=== PATIENT | male | born 1950 | race Caucasian/White ===

== ENCOUNTER 2020-03-15 06:29 | Inpatient (IN) | payer MEDICARE ==
[~2020-03-15] VITALS: Ht 177.8 cm; Wt 99.8 kg
[2020-03-15] VITALS (9 sets, daily range): BP systolic 104–141; BP diastolic 39–93
[~2020-03-15 06:29] MED LIST: LOSARTAN POTASS25 MG PO; MELOXICAM7.5 MG PO; SIMVASTATIN20 MG PO
[2020-03-16 00:08] VITALS: BP 148/82
[2020-03-16 04:28] VITALS: BP 140/83
[2020-03-16 05:09] LABS: HEMATOCRIT 38.1 % (39.0-50.0); HEMOGLOBIN 12.6 g/dl (14.0-18.0)
[2020-03-16 08:00] VITALS: BP 130/77
[2020-03-16 15:00] VITALS: BP 137/81
[2020-03-16 19:00] VITALS: BP 149/80
[2020-03-17 00:36] VITALS: BP 139/90
[2020-03-17 04:00] VITALS: BP 146/81
[2020-03-17 05:46] LABS: HEMOGLOBIN 11.9 g/dl (14.0-18.0)
[2020-03-17 08:25] VITALS: BP 141/83
[2020-03-17 09:17] VITALS: BP 141/83
[2020-03-17] MEDS ORDERED: SENNA-PLUS1 TAB PO (13:40)
== END 2020-03-17 15:30 | disposition home health service (06) | DRG 470 ==
LOC: MS2 06:29 → ORM 06:29 → MS2 11:21 → ORM 11:30 → MS2 03-17 15:30
PROVIDERS: ADMIT Orthopaedic Surgery; ATTEND Internal Medicine
PROC: 0SR904A Replacement of Right Hip Joint with Ceramic on Polyethylene Synthetic Substitute, Uncemented, Open Approach (ICD-10-PCS; principal; 2020-03-15)
PROC: 0T9B70Z Drainage of Bladder with Drainage Device, Via Natural or Artificial Opening (ICD-10-PCS; 2020-03-16)
PROC: XW0 New Technology, Anatomical Regions, Introduction (ICD-10-PCS; 2020-03-16)
DX: M16.11 Unilateral primary osteoarthritis, right hip (principal); I10 Essential (primary) hypertension; E78.5 Hyperlipidemia, unspecified; R33.9 Retention of urine, unspecified; Z23 Encounter for immunization; Z96.642 Presence of left artificial hip joint; Z20.822 Contact with and (suspected) exposure to COVID-19
CPT/HCPCS: C1713; J0131; J2710